=== PATIENT | female | born 1935 | race Caucasian/White ===

== ENCOUNTER → 2021-07-17 | Outpatient (CLI) | payer MEDICARE ==
--- NOTE | 2021-07-18 16:23 | US ---
EXAMINATION TYPE: US kidneys/renal and bladder DATE OF EXAM: 07/17/2021 COMPARISON: NONE CLINICAL HISTORY: R31.29 MICROSCOPIC HEMATURIA. No pain. Microscopic hematuria. EXAM MEASUREMENTS: Right Kidney: 7.9 x 4.5 x 4.4 cm Left Kidney: 9.7 x 3.4 x 4.3 cm Right Kidney: Appears small in size compared to contralateral kidney. Left Kidney: Cortical thinning Bladder: distended, anechoic Bilateral Jets seen There is no evidence for hydronephrosis at this point in time. No nephrolithiasis is seen. No luh s are identified. The urinary bladder is anechoic. Bilateral ureteral jets are seen. IMPRESSION: Cortical thinning noted right greater than left.
== END | disposition home or self-care (01) ==
LOC: RADUSWWP 15:33
PROVIDERS: ATTEND Internal Medicine
DX: N28.89 Other specified disorders of kidney and ureter (principal)
CPT/HCPCS: 76770

== ENCOUNTER → 2021-08-04 | Outpatient (CLI) | payer MEDICARE ==
--- NOTE | 2021-08-04 12:12 | BD ---
EXAMINATION TYPE: Axial Bone Density DATE OF EXAM: 08/04/2021 COMPARISON: NONE CLINICAL HISTORY: 86 years year old Female. ICD-10 CODE: Z78.0 ASYMPTOMATIC MENOPAUSAL STATE, Z13.82 0 Height: 62.5 Weight: 154 FRAX RISK QUESTIONS: NOTHING TO NOTE HERE RISK FACTORS HISTORY OF: Postmenopausal woman: YES, TOTAL HYST AT 50 Take estrogen and/or progesterone medications: YES, PREMARIN FOR ABOUT 8 YRS, NONE NOW Hyperparathyroidism: NO Adrenal Insufficiency: NO MEDICATIONS: Additional Medications: BP MEDS, CHOLESTEROL MEDS, VIT D AND CALCIUM Additional History: HYPERTENSION, CHOLESTEROL, HRT IN THE PAST, OSTEOARTHRITIS EXAM MEASUREMENTS: Bone mineral densitometry was performed using the [employer] System. Bone mineral density as measured about the Lumbar spine is: ----- L1-L4(G/cm2): 1.180 T Score Values are as follows: ----- L1: -1.3 ----- L2: -0.8 ----- L3: 1.3 ----- L4: 1.3 ----- L1-L4: 0.0 Bone mineral density FIRST DEXA AT [facility] Bone mineral density about the R hip (g/cm2): 0.941 Bone mineral density about the L hip (g/cm2): 0.988 T Score values are as follows: -----R Neck: -0.9 -----L Neck: -0.5 -----R Total: -0.5 -----L Total: -0.2 Bone mineral density FIRST STUDY AT [facility] FRAX%s: The graph provided illustrates a 9.9% chance for a major osteoporotic fx and a 2.5% chance fo r the hips probability for fx in 10 years time. IMPRESSION: Normal NOTE: T-SCORE=SD OF THE YOUNG ADULT MEAN.
== END | disposition home or self-care (01) ==
LOC: RADBDWWP 11:17
PROVIDERS: ATTEND Internal Medicine
DX: Z13.820 Encounter for screening for osteoporosis (principal); Z78.0 Asymptomatic menopausal state
CPT/HCPCS: 77080